=== PATIENT | male | born 1995 | race Caucasian/White ===

== ENCOUNTER → 2018-11-05 | Day surgery (SDC) | payer OTHER ==
[~2018-11-05] MED LIST: GAS X PO; MIDAZOLAM HCL 2 MG/2 ML VIAL ONE; PANTOPRAZOLE SO40 MG PO; PROPOFOL IV EMULSION 10 MG/ML 20 ML VIAL ONE
[2018-11-05 14:20] VITALS: BP 123/92
== END | disposition home or self-care (01) ==
LOC: OR 10:48
PROVIDERS: ATTEND Internal Medicine Gastroenterology
DX: K29.70 Gastritis, unspecified, without bleeding (principal); K44.9 Diaphragmatic hernia without obstruction or gangrene; K31.89 Other diseases of stomach and duodenum; K21.9 Gastro-esophageal reflux disease without esophagitis; R01.1 Cardiac murmur, unspecified; T78.40XA Allergy, unspecified, initial encounter; X58.XXXA Exposure to other specified factors, initial encounter
CPT/HCPCS: 43239; J2250; J2704; 43235